=== PATIENT | male | born 1990 | race African-American/Black ===

== ENCOUNTER 2017-05-02 12:00 | Emergency (ER) | payer OTHER ==
[~2017-05-02] VITALS: Ht 180.3 cm; Wt 68.0 kg
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
[~2017-05-02 12:00] MED LIST: KEFLEX500 MG PO; NO MEDICATIONS; PHENERGAN25 M1 PO
== END 2017-05-02 15:00 | disposition home or self-care (01) ==
LOC: CED 12:00 → CFTX 12:00
DX: S70.02XA Contusion of left hip, initial encounter (principal); S20.212A Contusion of left front wall of thorax, initial encounter; Z90.49 Acquired absence of other specified parts of digestive tract; V49.00XA Driver injured in collision with unspecified motor vehicles in nontraffic accident, initial encounter; Y92.410 Unspecified street and highway as the place of occurrence of the external cause; Z88.5 Allergy status to narcotic agent
CPT/HCPCS: 71020; 73502; 96372; 99283; J1885